=== PATIENT | female | born 1975 | race Caucasian/White ===

== ENCOUNTER 2017-04-18 18:00 | Emergency (ER) | payer SELFPAY ==
[2017-04-18] MEDS ORDERED: NORMAL SALINE 1000 ML 1,000 ML IV ONE ×2 (18:25→21:10)
[2017-04-18] MEDS ORDERED: DIPHENHYDRAMINE HCL 50 MG/ML VIAL IV ONE ×3 (18:25→21:10)
--- NOTE | 2017-04-18 18:26 | ER Document Report ---
ED General - General Mode of Arrival: Medic Information source: Patient - HPI Onset: Other - Refer to HPI note Similar symptoms previously: Yes Recently seen / treated by doctor: No <OSCAR SRINIVASAN - Last Filed: 04/18/17 22:06> <SENA ARANA - Last Filed: 04/19/17 00:25> - General Chief Complaint: Other Stated Complaint: WEAKNESS Time Seen by Provider: 04/18/17 18:11 Notes: Patient is a 41-year-old female presenting emergency department for "having the urge to look up" with a tightnening and tensing of her neck and body. Patient told nurse that she used some of her father's marijuana. Patient requests more Benadryl at time of exam. Patient states she is not taking any medications but later informs that she has been taking percocets and states that she has been unable to get any recently. (OSCAR SRINIVASAN) - Related Data Allergies/Adverse Reactions: Cholinesterase Inhibitor(Carbamate) Allergy (Verified 05/25/12 20:04) Past Medical History - General Information source: Patient - Social History Smoking Status: Current Every Day Smoker Frequency of alcohol use: Occasional Drug Abuse: Marijuana, Prescription drugs Family History: None Neurological Medical History: Reports: Hx Migraine Past Surgical History: Reports: Hx Tubal Ligation - Immunizations Hx Diphtheria, Pertussis, Tetanus Vaccination: No <OSCAR SRINIVASAN - Last Filed: 04/18/17 22:06> Review of Systems - Review of Systems Constitutional: No symptoms reported EENT: No symptoms reported Cardiovascular: No symptoms reported Respiratory: No symptoms reported Gastrointestinal: No symptoms reported Genitourinary: No symptoms reported Female Genitourinary: No symptoms reported Musculoskeletal: See HPI Skin: No symptoms reported Hematologic/Lymphatic: No symptoms reported Neurological/Psychological: See HPI -: Yes All other systems reviewed and negative <OSCAR SRINIVASAN - Last Filed: 04/18/17 22:06> Physical Exam - Vital signs Interpretation: Normal - General General appearance: Alert In distress: Mild - Appears uncomfortable - HEENT Head: Normocephalic, Atraumatic Eyes: Normal Pupils: PERRL Mucous membranes: Dry - Respiratory Respiratory status: No respiratory distress Chest status: Nontender Breath sounds: Normal Chest palpation: Normal - Cardiovascular Rhythm: Regular Heart sounds: Normal auscultation Murmur: No - Abdominal Inspection: Normal Distension: No distension Bowel sounds: Normal Tenderness: Nontender Organomegaly: No organomegaly - Back Back: Normal - Extremities General upper extremity: Normal inspection, Nontender, Normal color, Normal ROM , Normal temperature General lower extremity: Normal inspection, Nontender, Normal color, Normal ROM , Normal temperature, Normal weight bearing. No: Angel's sign - Neurological Neuro grossly intact: Yes Cognition: Normal Orientation: AAOx4 Alex Coma Scale Eye Opening: Spontaneous Deanne Coma Scale Verbal: Oriented Deanne Coma Scale Motor: Obeys Commands Deanne Coma Scale Total: 15 Speech: Normal Motor strength normal: LUE, RUE, LLE, RLE Sensory: Normal - Psychological Associated symptoms: Agitated, Irritable, Uncooperative - Skin Skin Temperature: Warm Skin Moisture: Dry Skin Color: Normal <SENA ARANA - Last Filed: 04/19/17 00:25> - Vital signs Vitals: Temp Pulse Resp BP Pulse Ox 97.8 F 84 16 117/70 96 04/18/17 18:05 04/18/17 18:05 04/18/17 18:05 04/18/17 18:05 04/18/17 18:05 Course - Laboratory Result Diagrams: 04/18/17 18:25 04/18/17 18:25 <OSCAR SRINIVASAN - Last Filed: 04/18/17 22:06> - Laboratory Result Diagrams: 04/18/17 18:25 04/18/17 18:25 <SENA ARANA - Last Filed: 04/19/17 00:25> - Re-evaluation Re-evalutation: 04/18/17 19:43 Patient was brought in by EMS initially had been given Benadryl for tardive dyskinesia. Patient is not on any medications at all causes. Patient then admits she has a history of Percocet abuse. 04/18/17 21:16 Given more Benadryl for withdrawal and clonidine. 04/19/17 00:01 Patient is feeling better at this time after medications. She will be discharged home with prescription for Vistaril, Zofran, Reglan, and clonidine. She is to follow-up at [facility] regarding her opiate withdrawal. Stable for discharge. (SENA ARANA) - Vital Signs Vital signs: Temp Pulse Resp BP Pulse Ox 98.1 F 74 18 102/80 98 04/18/17 22:52 04/18/17 22:52 04/18/17 22:52 04/18/17 22:52 04/18/17 22:52 - Laboratory Laboratory results interpreted by me: 04/18/17 04/18/17 18:25 18:25 WBC 10.6 H RDW 14.6 H Seg Neutrophils % 80.2 H Absolute Neutrophils 8.5 H AST 74 H Salicylates < 1.0 L Acetaminophen < 10 L Discharge <OSCAR SRINIVASAN - Last Filed: 04/18/17 22:06> <SENA ARANA - Last Filed: 04/19/17 00:25> - Discharge Clinical Impression: Opiate withdrawal Condition: Stable Disposition: HOME, SELF-CARE Prescriptions: Clonidine HCl [Clonidine HCl ER] 0.1 mg PO Q12 #30 tab.er.12h Hydroxyzine Pamoate [Vistaril 25 mg Capsule] 25 - 50 mg PO DAILY #30 capsule Metoclopramide HCl [Reglan 10 mg Tablet] 1 - 2 tab PO ASDIR PRN #25 tablet PRN Reason: Referrals: [facility] - Follow up as needed Scribe Attestation: 04/19/17 00:25 I personally performed the services described in the documentation, reviewed and edited the documentation which was dictated to the scribe in my presence, and it accurately records my words and actions. (SENA ARANA) Scribe Documentation - Scribe Written by Minerva:: Minerva Shahid 04/18/17 22:10 acting as scribe for :: Tena <OSCAR SRINIVASAN - Last Filed: 04/18/17 22:06>
[2017-04-18 18:50] LABS: ABSOLUTE LYMPHOCYTES (AUTO) 1.7 10^3/uL (0.5-4.7); ABSOLUTE MONOCYTES (AUTO) 0.4 10^3/uL (0.1-1.4); ABSOLUTE NEUT (AUTO) 8.5 10^3/uL (1.7-8.2); BASOPHILS % (AUTO) 0.3 % (0-2); EOSINOPHILS % (AUTO) 0.3 % (0-6); HEMATOCRIT 41.6 % (36.0-47.0); HEMOGLOBIN 13.9 g/dL (12.0-15.5); HGB HCT DIFFERENCE 0.1; LYMPHOCYTES % (AUTO) 15.7 % (13-45); MEAN CORPUSCULAR HEMOGLOBIN 28.5 pg (27.0-33.4); MEAN CORPUSCULAR HGB CONC 33.3 g/dL (32.0-36.0); MEAN CORPUSCULAR VOLUME 86 fl (80-97); MONOCYTES % (AUTO) 3.5 % (3-13); RED BLOOD COUNT 4.86 10^6/uL (3.72-5.28); RED CELL DISTRIBUTION WIDTH 14.6 % (11.5-14.0); SEGMENTED NEUTROPHILS % (AUTO) 80.2 % (42-78); WHITE BLOOD COUNT 10.6 10^3/uL (4.0-10.5)
[2017-04-18 19:13] LABS: ALANINE AMINOTRANSFERASE 43 U/L (9-52); ALBUMIN 4.1 g/dL (3.5-5.0); ALKALINE PHOSPHATASE 87 U/L (38-126); ANION GAP 12 (5-19); ASPARTATE AMINO TRANSFERASE 74 U/L (14-36); BILIRUBIN,DIRECT 0.2 mg/dL (0.0-0.4); BILIRUBIN,TOTAL 0.5 mg/dL (0.2-1.3); BLOOD UREA NITROGEN 13 mg/dL (7-20); CALCIUM 9.6 mg/dL (8.4-10.2); CARBON DIOXIDE 25 mmol/L (22-30); CHLORIDE 104 mmol/L (98-107); CREATININE RESULT 0.71 mg/dL (0.52-1.25); GLUCOSE 92 mg/dL (75-110); POTASSIUM 3.8 mmol/L (3.6-5.0); TOTAL PROTEIN 7.5 g/dL (6.3-8.2)
[2017-04-18 19:20] LABS: ALCOHOL < 10 mg/dL (NONE DETECTED)
[2017-04-18 20:40] LABS: APPEARANCE,URINE CLEAR; BILIRUBIN,URINE NEGATIVE (NEGATIVE); GLUCOSE, URINE NEGATIVE (NEGATIVE); KETONES,URINE NEGATIVE (NEGATIVE); LEUKOCYTE ESTERASE,URINE NEGATIVE (NEGATIVE); NITRITE,URINE NEGATIVE (NEGATIVE); PROTEIN,URINE NEGATIVE (NEGATIVE); URINE SPECIFIC GRAVITY 1.001; UROBILINOGEN,URINE NEGATIVE mg/dL (<2.0)
[2017-04-18 20:55] LABS: URINE BARBITURATES SCREEN NEGATIVE; URINE METHADONE SCREEN NEGATIVE; URINE OPIATES LOW NEGATIVE; URINE PHENCYCLIDINE SCREEN NEGATIVE
[2017-04-18] MEDS ORDERED: ONDANSETRON HCL INJ/PF 4 MG/2 ML SDV IV ONE (21:10)
[2017-04-18] MEDS ORDERED: CLONIDINE HCL 0.1 MG TABLET PO ONE (21:10)
[2017-04-18] MEDS ORDERED: IBUPROFEN 800 MG TABLET PO ONE (22:36)
[2017-04-18] MEDS ORDERED: HYDROXYZINE PAMOATE 25 MG CAPSULE #4 (ER DISP) PO ONE (23:55)
[2017-04-18] MEDS ORDERED: HYDROXYZINE PAMOATE 50 MG CAPSULE PO ONE (23:55)
[2017-04-18] MEDS ORDERED: ONDANSETRON ODT 4 MG TAB (6 TAB/DSPK) PO PRN (23:55)
[2017-04-19 00:44] VITALS: BP 110/78
--- NOTE | 2017-04-19 09:23 | EKG REPORT ---
SEVERITY:- BORDERLINE ECG - SINUS RHYTHM PROBABLE LEFT ATRIAL ABNORMALITY : Confirmed by: Alexsandra Duque 19-Apr-2017 09:22:51
== END 2017-04-19 00:42 | disposition home or self-care (01) ==
LOC: ER 18:00
DX: F11.23 Opioid dependence with withdrawal (principal); R45.1 Restlessness and agitation; R45.4 Irritability and anger; T40.2X5A Adverse effect of other opioids, initial encounter; F17.200 Nicotine dependence, unspecified, uncomplicated; Z88.8 Allergy status to other drugs, medicaments and biological substances
CPT/HCPCS: 93005; 96376; 99285; 96361; 96374; 96375; 36415; 80307 ×4; 84703; 85025; 80053; 81001; 93010; J1200; J3490; J2405; J7030